=== PATIENT | female | born 1950 | race Caucasian/White ===

== ENCOUNTER 2021-07-16 18:32 | Observation (INO) ==
[2021-07-16] MEDS ORDERED: 0.9 % Sodium Chloride 1,000 ML IVC SCH (23:45)
[2021-07-16] MEDS ORDERED: Ondansetron ODT 4 MG TAB.RAPDIS SL PRN (23:53)
[2021-07-16] MEDS ORDERED: Acetaminophen 325 MG TABLET PO PRN ×2 (23:53)
[2021-07-16] MEDS ORDERED: Naloxone 0.4 MG/ML INJ IVP PRN (23:53)
[2021-07-16] MEDS ORDERED: Melatonin 3 MG TABLET PO PRN (23:53)
[2021-07-16] MEDS ORDERED: *HR* HYDROcodone/Acet 5/325 mg TABLET PO PRN (23:53)
[2021-07-16] MEDS ORDERED: Perflutren Lipid Microsphere 1.3 ML in 0.9 % Sodium Chloride 8.7 ML IVP PRN (23:53)
[2021-07-16] MEDS ORDERED: *HR* OxyCODONE Immed Rel 5 MG TABLET PO PRN (23:53)
[2021-07-17] MEDS ORDERED: Ipratropium/Albuterol Neb 3 ML IH PRN (01:24)
[2021-07-17 01:38] LABS: Hemoglobin 12.6 g/dL (11.5-15.4); Mean Corpuscular HGB Conc 31.5 g/dL (31.6-35.5); Mean Corpuscular Hemoglobin 24.3 pg (28.0-33.3); Mean Corpuscular Volume 77.1 fL (83.0-100.0); Mean Platelet Volume 9.8 fL (9.4-12.4); Platelet Count 276 K/mcL (140-400); Red Blood Count 5.19 M/mcL (3.82-4.97); Red Cell Distribution Width 14.5 % (11.5-14.5); White Blood Count 8.9 K/mcL (4.3-11.1)
[2021-07-17] MEDS ORDERED: Aspirin 325 MG TABLET PO ONE (01:39)
[2021-07-17 01:46] LABS: Prothrombin Time 10.7 Seconds (9.4-12.1)
[2021-07-17 03:08] LABS: Folate > 22.3 ng/mL (3.0-16.0); Vitamin B12 230 pg/mL (250-1100)
[2021-07-17 03:11] LABS: Alanine Aminotransferase 22 Units/L (7-52); Albumin 3.8 g/dL (3.5-5.7); Albumin/Globulin Ratio 1.6 (1.1-2.2); Alkaline Phosphatase 67 Units/L (34-104); Aspartate Amino Transferase 17 Units/L (13-39); BUN/Creatinine Ratio 15 (6-26); Bilirubin,Total 0.6 mg/dL (0.3-1.0); Blood Urea Nitrogen 16 mg/dL (8-23); Calcium 9.3 mg/dL (8.6-10.3); Carbon Dioxide 24 mEq/L (23-29); Chloride 105 mEq/L (98-107); Chol/HDL Ratio 3.7 (0-4.9); Cholesterol 168 mg/dL (< 200); Globulin 2.4 g/dL (2.4-3.5); Glucose 248 mg/dL (70-105); HDL Cholesterol 46 mg/dL (40-59); LDL Cholesterol,Calculated 80 mg/dL (< 100); LDL Cholesterol,Direct 100 mg/dL (75-193); Osmolality,Calculated 301 (280-300); Phosphorous 3.7 mg/dL (2.7-4.5); Potassium 3.5 mEq/L (3.5-5.1); Sodium 141 mEq/L (136-145); Total Protein 6.2 g/dL (6.4-8.9); Triglycerides 212 mg/dL (< 150); eGFR For African Americans > 60 (> 60); eGFR For Non-African Americans 51 (> 60)
[2021-07-17 03:45] LABS: Estimated Average Glucose 292 mg/dl; Hemoglobin A1C 11.8 %
[2021-07-17 04:25] LABS: Troponin I < 0.03 ng/mL (< 0.04)
[2021-07-17] MEDS ORDERED: Aspirin Enteric Coated 81 MG Tablet PO SCH (09:00)
[2021-07-17 15:21] VITALS: BP 145/85; PULSE 83; TEMP 97.8; O2SAT 95
[2021-07-17] MEDS ORDERED: Cyanocobalamin (B-12) 1,000 MCG/ML VIAL SQ ONE (15:30)
[2021-07-18] MEDS ORDERED: Aspirin Enteric Coated 81 MG Tablet PO SCH (09:00)
== END 2021-07-17 18:04 | disposition home or self-care (01) ==
LOC: 3BNU → SUATTDRO 23:22
PROVIDERS: ADMIT Internal Medicine; ATTEND Registered Nurse